=== PATIENT | female | born 1995 | race Caucasian/White ===

== ENCOUNTER 2017-08-17 23:17 | Emergency (ER) | payer BC, OTHER ==
[~2017-08-17] VITALS: Ht 165.1 cm; Wt 77.2 kg
[2017-08-18] MEDS ORDERED: ketorolac trometh. 30mg/ml inj. IM ONE (01:15)
[2017-08-18 01:31] VITALS: BP 127/85
== END 2017-08-18 01:45 | disposition home or self-care (01) ==
LOC: ER 23:18
DX: H92.02 Otalgia, left ear (principal); R50.9 Fever, unspecified; Z88.2 Allergy status to sulfonamides; Z98.890 Other specified postprocedural states
CPT/HCPCS: 96372; 99283; J1885